=== PATIENT | female | born 1960 | race Caucasian/White ===

== ENCOUNTER 2019-06-21 17:56 | Observation (INO) | payer MEDICARE, OTHER ==
[2019-06-21 19:16] LABS: #Basophils 0.1 thou/uL (0.0-0.2); #Eosinphils 0.1 thou/uL (0.0-0.7); #Lymphocytes 3.2 thou/uL (1.20-3.40); #Monocytes 0.9 thou/uL (0.11-0.59); #Neutrophils 5.7 thou/uL (1.40-6.50); %Eosinophils 0.7 % (0.0-10.0); %Lymphocytes 32.4 % (21.0-51.0); %Monocytes 8.8 % (0.0-10.0); %Neutrophils 57.1 % (42.0-75.0); Hemoglobin 14.2 g/dL (12.0-16.0); Mean Corpuscular HGB CONC 34.1 g/dL (32.0-36.0); Mean Corpuscular Hemoglobin 30.9 pg (27.0-31.0); Mean Corpuscular Volume 90.5 fL (78.0-98.0); Mean Platelet Volume 9.6 fL (7.4-10.4); Platelet Count 211 thou/uL (130-400); RBC Distribution Width 11.5 % (11.5-14.5); Red Blood Cell (RBC) Count 4.61 mill/uL (4.20-5.40); White Blood Cell (WBC) Count 9.9 thou/uL (4.8-10.8)
[2019-06-21 19:42] LABS: ALT (SGPT) 10 U/L (8-55); AST (SGOT) 14 U/L (5-34); Albumin 4.5 g/dL (3.5-5.0); Alkaline Phosphatase 90 U/L (40-110); Anion Gap 14 mmol/L (10-20); BUN (Urea Nitrogen) 12 mg/dL (9.8-20.1); Bilirubin, Total 0.3 mg/dL (0.2-1.2); Calc. Creatinine Clearance 0 mL/min (70-130); Calcium 10.2 mg/dL (7.8-10.44); Carbon Dioxide 26 mmol/L (22-29); Chloride 95 mmol/L (98-107); Estimated GFR-MDRD 48; Globulin 4.1 g/dL (2.4-3.5); Glucose 326 mg/dL (70-105); Potassium 4.1 mmol/L (3.5-5.1); Protein, Total 8.6 g/dL (6.0-8.3); Sodium 131 mmol/L (136-145)
[2019-06-21] MEDS ORDERED: Ondansetron PF 4 MG/2 ML Vial ONE (20:06)
[2019-06-21] MEDS ORDERED: HYDROmorphone 0.5 MG/0.5 ML SYRINGE ONE (20:07)
[2019-06-21] MEDS ORDERED: Clindamycin/D5W 600 mg/50 ml Premix Bag ONE (21:36)
--- NOTE | 2019-06-21 22:46 | PDOC.FPRHP ---
- History of Present Illness Chief Complaint: Right LE Pain / Erythema History of Present Illness: Patient is a 59 y/o female who presents to the ED with right LE pain, erythema and swelling that she states has been occuring since 06/08. Patient first noticed the pain and swelling following a car ride to [place]. She presented to an urgent care clinic on 06/14/19 and was diagnosed with Diabetic Neuropathy and DC'd with Gabapentin and Tylenol 3. Patient's pain continued to increase, so she presented to the [facility] ED where she was diagnosed with RLE cellulitis and Diabetic Neuropathy - she was given IV antibiotics x1 and DC' d with PO Cefdinir and Clindamycin. On 06/21/19 she stated that her pain was unbearable, and she was told by her PCP to present to [facility] for IV antibiotics. She states that she registered a temperature of 101 in the office of her PCP and stated that she felt like she was walking on "pins and needles". She is a notably poor historian, but denies any recent trauma to the area or frequent skin or MRSA infections, as well as visual/auditory changes, chest pain , SOB, V/D, ABD ain, dysuria, hematuria or bloody stools. She does not perform regular Diabetic Foot Exams. ED Course: While in the ED, patient was administered Clindamycin 600 mg IV, Dilaudid 0.5 mg IV and Zofran 4 mg IV. - Allergies/Adverse Reactions Allergies Allergy/AdvReac Type Severity Reaction Status Date / Time morphine Allergy respiratory Verified 06/22/19 00:52 depression Sulfa (Sulfonamide Allergy Swollen Verified 06/22/19 00:52 Antibiotics) Lips - Home Medications Medication Instructions Recorded Confirmed Type RX: Amlodipine Besylate 10 mg PO DAILY 06/23/16 06/22/19 History [amLODIPine Besylate] RX: Aspirin Chewable [Aspirin 81 mg PO DAILY 06/23/16 06/22/19 History Chewable Tablet] RX: Buspirone HCl [busPIRone HCl] 30 mg PO BID 06/23/16 06/23/16 History RX: Clopidogrel Bisulfate 75 mg PO QAM 06/23/16 06/22/19 History [Clopidogrel] RX: Gabapentin 200 mg PO BID 06/23/16 06/23/16 History RX: Insulin Glargine,Hum.Rec.Anlog 25 unit SQ BID 06/23/16 06/22/19 History [Lantus Solostar] RX: Metoprolol Tartrate 25 mg PO BID 06/23/16 06/22/19 History RX: Multivitamin [Multivitamins] 1 cap PO DAILY 06/23/16 06/22/19 History RX: Rosuvastatin Calcium 40 mg PO HS 06/23/16 06/22/19 History RX: traZODone HCl [Trazodone HCl] 150 mg PO HS 06/23/16 06/22/19 History Cefdinir 300 mg PO BID 06/22/19 06/22/19 History Cilostazol 100 mg PO BID 06/22/19 06/22/19 History RX: Acetaminophen W/ Codeine 1 tab PO PRN PRN 06/22/19 06/22/19 History [Acetaminophen/Codeine #3] RX: Clindamycin [Cleocin] 150 mg PO QID 06/22/19 06/22/19 History RX: HumaLOG [HumaLOG Vial] SQ TID 06/22/19 History RX: Isosorbide Mononitrate [Imdur 60 mg PO DAILY 06/22/19 History ER] RX: Valsartan [Diovan] 80 mg PO BID 06/22/19 06/22/19 History - History PMHx: DM2, HTN, HLD, Unknown Heart Conditions (Palpitations) PSHx: Multiple Stents placed in both LEs, Remote , Remote Hysterectomy FHx: Mother (PAD, Breast Cancer), Father (OAT Cell Cancer), Brother (DM2) Social: Tobacco 1.5 PPD x30, Denies EtOH and Drugs Code: Full ( is MPOA and understands termination clerk wishes) - Review of Systems General: reports: fever/chills, fatigue Eyes: denies: eye pain, vision changes ENT: denies: nasal congestion, rhinorrhea Respiratory: reports: cough. denies: congestion, shortness of breath Cardiovascular: reports: edema. denies: chest pain, palpitation Gastrointestinal: reports: nausea. denies: vomiting, diarrhea, constipation, abdominal pain, GI bleeding Genitourinary: denies: dysuria, discharge Skin: reports: rashes. denies: lesions Musculoskeletal: reports: pain, swelling Neurological: reports: numbness. denies: syncope, weakness - Vital signs BP: [165/68] HR: [64] RR: [] Tmax: [98.3] Pox: [98]% on [Room] Wt: [71 kg] - Physical Exam Constitutional: NAD, awake, alert and oriented, well developed HEENT: normocephalic and atraumatic, PERRLA, conjunctiva clear, no scleral icterus, grossly normal vision, grossly normal hearing, normal nasal mucosa, MMM , oropharynx clear, good dention Neck: supple, FROM, trachea midline, no LAD Chest: no-tender to palpation, no lesions Heart: RRR, normal S1/S2, no murmurs/rubs/gallops, pulses present, no edema Lungs: CTAB, no respiratory distress, no rales/rhonchi, no wheezing, no retractions Abdomen: soft, non-tender, bowel sounds present Musculoskeletal: normal structure, ROM grossly normal Neurological: no focal deficit Skin: other (Minimal swelling and poorly demarcated, extremely mild erythema on right lower extremity. FROM bilaterally. Delayed responses of pain following palpation. Appropriate warmth but difficult to palpate Posterior Tibial and Dorsalis Pedis Arteries.) Heme/Lymphatic: no unusual bruising or bleeding, no purpura Psychiatric: normal mood and affect, intact recent and remote memory FMR H&P: Results - Labs Result Diagrams: 06/21/19 18:55 06/21/19 18:55 Lab results: WBC 9.9 thou/uL (4.8-10.8) 06/21/19 18:55 Hgb 14.2 g/dL (12.0-16.0) 06/21/19 18:55 Hct 41.8 % (36.0-47.0) 06/21/19 18:55 MCV 90.5 fL (78.0-98.0) 06/21/19 18:55 Plt Count 211 thou/uL (130-400) 06/21/19 18:55 Neutrophils % 57.1 % (42.0-75.0) 06/21/19 18:55 Sodium 131 mmol/L (136-145) L 06/21/19 18:55 Potassium 4.1 mmol/L (3.5-5.1) 06/21/19 18:55 Chloride 95 mmol/L (98-107) L 06/21/19 18:55 Carbon Dioxide 26 mmol/L (22-29) 06/21/19 18:55 BUN 12 mg/dL (9.8-20.1) 06/21/19 18:55 Creatinine 1.15 mg/dL (0.6-1.1) H 06/21/19 18:55 Glucose 326 mg/dL (70-105) H 06/21/19 18:55 Lactic Acid 1.0 mmol/L (0.5-2.2) 06/21/19 18:55 Calcium 10.2 mg/dL (7.8-10.44) 06/21/19 18:55 Total Bilirubin 0.3 mg/dL (0.2-1.2) 06/21/19 18:55 AST 14 U/L (5-34) 06/21/19 18:55 ALT 10 U/L (8-55) 06/21/19 18:55 Alkaline Phosphatase 90 U/L (40-110) 06/21/19 18:55 Serum Total Protein 8.6 g/dL (6.0-8.3) H 06/21/19 18:55 Albumin 4.5 g/dL (3.5-5.0) 06/21/19 18:55 FMR H&P: A/P - Problem List (1) Cellulitis Current Visit: Yes Status: Acute Code(s): L03.90 - CELLULITIS, UNSPECIFIED (2) DM (diabetes mellitus), type 2, uncontrolled Current Visit: No Status: Chronic Code(s): E11.65 - TYPE 2 DIABETES MELLITUS WITH HYPERGLYCEMIA (3) PAD (peripheral artery disease) Current Visit: No Status: Chronic Code(s): I73.9 - PERIPHERAL VASCULAR DISEASE, UNSPECIFIED - Plan Patient is a 59 y/o female who presents to the ED for evaluation of RLE pain. 1. Cellulitis of RLE -No obvious lesions or ulcerations - no abscess palpated during physical exam -X-Ray (06/18/19): NAF - will not repeat at this time -No signs of sepsis, rapidly spreading infection or neurovascular compromise -Poorly demarcated barriers of erythema from outside provider - erythema appears to extend only to mid forefoot - difficult to assess progression / regression -Patient had previously received a single dose of unknown IV antibiotic and was DC'd home with PO Cefdinir and Clindamycin - regimen currently incomplete -s/p Clindamycin 600 mg IV in ED - will continue empiric therapy Q24H -s/p Dilaudid 0.5 mg IV for pain control - will switch to Tylenol #3 and home medication regimen of Gabapentin - encourage elevation and warm compresses if needed -Plan for eventual transition to PO antibiotics 2. PAD -Patient has extensive history of tobacco abuse and admits to multiple stent placements -No evidence of cyanosis or limb ischemia -Continue home medication regimen 3. DM2 -B on 06/21/18 -Continue home medication regimen -Moderate SSI -Moderate PM SSI 4. Tobacco Abuse -Nicotine 21 mg Patch -Continue to encourage tobacco abuse cessation Code: Full Diet: HH/CC Activity: Ad Cydney VTE PPx: Lovenox & SCDs Dispo: Patient is currently stable on the Medical Floor for RLE Cellulitis FMR H&P: Upper Level - Pertinent history 59 y/o F PMHx CAD s/p 3 stents, PAD s/p stents, DM2 - uncontrolled, HTN, HLD, tobacco abuse, anxiety, depression presents to the ED due to failed outpt treatment of cellulitis. She reports for the past week she has had increased pain, swelling, redness in her R foot. She reports constant pins and needles pain especially on the bottom of the foot. She reports the redness and swelling was more on the top of the foot and it has been getting progressively worse. She went to [facility] ED and was given clinda and cefdinir that she has been taking, but reports no improvement with this. She reports the gabapentin has helped some with the neuropathy. She reports a fever to 100.9 at her PCP's office. - Pertinent findings Vitals: BP: 165/68, Pulse: 84, Resp: 18, Temp: 98.3 (Oral), O2 sat: 98 on (Room Air) PE: Gen - alert, oriented, NAD CV - RRR, no murmurs Lungs - CTAB, no wheezes Ext - mild diffuse erythema and swelling of R dorsal foot, pain to palpation. Normal cap refill and color otherwise, FROM. - Plan Date/Time: 06/21/19 4809 I, Magy Powers MD, PGY-3, have evaluated this patient and agree with findings/ plan as outlined by business management intern resident. Pertinent changes/additions are listed here. RLE cellulitis, failed outpatient treatment Pt s/p clinda and cefdinir. Received IV clinda in ED and reports improvement in erythema since that time. -Will continue IV clinda and monitor for improvement -Tylenol #3 prn pain, pt s/p dilaudid in ED, but will try to avoid IV pain meds if possible Peripheral Neuropathy -Gabapentin Hyponatremia Mild to 131 -Monitor CAD s/p 3 stents -Continue plavix, aspirin, valsartan, metoprolol, rosuvastatin, isosorbide mononitrate -HH diet PAD s/p stents -Continue cilostazol DM2 - uncontrolled -SSI -Accuchecks -CC/HH diet HTN BP elevated at this time -Continue amlodipine, metoprolol, valsartan HLD -Continue rosuvastatin tobacco abuse -Group Fitness Instructor on cessation anxiety -Continue buspirone depression -Continue trazodone Dispo: Obs on medical LOS: Likely less than 2 days
[2019-06-21] MEDS ORDERED: Dextrose 50% Abboject 50 ML SYRINGE SLOW IVP PRN (23:48)
[2019-06-21] MEDS ORDERED: Dextrose 5% in Water 1,000 ML IV PRN (23:48)
[2019-06-21] MEDS ORDERED: Acetaminophen 325 MG TAB PO PRN (23:57)
[2019-06-21] MEDS ORDERED: Ondansetron ODT 4 MG TAB PO PRN (23:57)
[2019-06-22 00:17] VITALS: BMI 25.3
[2019-06-22] MEDS ORDERED: HumaLOG 300 UNITS/3 ML VIAL SC PRN (00:47)
[2019-06-22] MEDS: Nicotine 21 MG PATCH TD SCH ×2 (01:00→20:46)
[2019-06-22] MEDS: Acetaminophen/Codeine 30-300mg Tablet PO PRN ×4 (01:01→19:16)
[2019-06-22] MEDS: HumaLOG 300 UNITS/3 ML VIAL SC PRN ×2 (05:27→17:44)
[2019-06-22] MEDS: Clindamycin/D5W 600 MG in Premix Bag 1 BAG IVPB SCH ×3 (05:27→20:46)
[2019-06-22] MEDS: Insulin Glargine 20 UNITS in Pre-Filled Syringe 1 EACH SC SCH (08:32)
[2019-06-22] MEDS: Clopidogrel Bisulfate 75 MG TAB PO SCH (08:33)
[2019-06-22] MEDS: Metoprolol Tartrate 50 MG TAB PO SCH ×2 (08:33→20:46)
[2019-06-22] MEDS: Rosuvastatin 20 MG TAB PO SCH (08:33)
[2019-06-22] MEDS: Aspirin 81 mg Enteric Coated Tablet PO SCH (08:33)
[2019-06-22] MEDS: busPIRone HCl 10 MG TAB PO SCH (08:33)
[2019-06-22] MEDS: Cilostazol 100 MG TAB PO SCH ×2 (08:33→20:46)
[2019-06-22] MEDS: Valsartan 80 MG TAB PO SCH ×2 (08:34→20:46)
[2019-06-22] MEDS: Cyanocobalamin (Vitamin B-12) 1,000 MCG TAB PO SCH (08:34)
[2019-06-22] MEDS: Amlodipine 5 MG TAB PO SCH (08:34)
[2019-06-22] MEDS: Enoxaparin Sodium 40 MG/0.4 ML SYRINGE SC SCH (08:35)
[2019-06-22] MEDS ORDERED: Famotidine 20 MG TAB PO SCH (09:00)
[2019-06-22] MEDS ORDERED: Gabapentin 300 MG CAP PO SCH (09:00)
[2019-06-22] MEDS: Gabapentin 300 MG CAP PO SCH ×3 (10:41→20:46)
--- NOTE | 2019-06-22 11:45 | PRG ---
DATE OF SERVICE: 06/22/2019 I have examined the patient. I have discussed the case with Dr. Valerie Trinidad and agree with her assessment and plan. Ms. Singh is a pleasant 59-year-old lady, who was admitted with a possible cellulitis of her right lower extremity. She has however had several rounds of antibiotics at outlying areas without improvement. We need to consider that perhaps this is not cellulitis and we will do some further testing to ensure that this is not DVT, although clinically it does not appear to be. In the meantime, we will continue with antibiotics and pain control. Job ID: [id number]
--- NOTE | 2019-06-22 14:08 | ULT ---
BILATERAL LOWER EXTREMITY VENOUS DOPPLER ULTRASOUND: HISTORY: Bilateral lower extremity edema and pain. TECHNIQUE: Cast scale, color flow, and spectral Doppler imaging of the deep venous systems of the lower extremit ies was performed bilaterally. FINDINGS: There is good flow, compression, and augmentation within the common femoral, femoral, deep femoral, p opliteal, posterior tibial, and greater saphenous veins on either side. IMPRESSION: No evidence of deep vein thrombosis in either lower extremity. POS: TPC
[2019-06-22] MEDS ORDERED: traZODone HCl 150 MG TAB PO SCH (21:00)
--- NOTE | 2019-06-23 06:02 | PDOC.FM ---
- Subjective Subjective: Pt states neuropathic pain is much improved from increasing gabapentin to TID dosing. Denies further redness or swelling to R foot. No acute overnight events. - Objective MAR Reviewed: Yes Vital Signs & Weight: Vital Signs (12 hours) Temp Pulse Resp BP Pulse Ox 06/23/19 03:44 98.1 F 72 20 122/72 96 06/23/19 00:44 98.7 F 81 20 159/60 H 95 06/22/19 20:00 99.6 F 86 20 127/75 94 L Weight Weight 71.305 kg I&O: 06/21/19 06/22/19 06/23/19 06:59 06:59 06:59 Intake Total 520 Balance 520 Result Diagrams: 06/21/19 18:55 06/23/19 06:39 Phys Exam - Physical Examination Constitutional: NAD HEENT: moist MMs, sclera anicteric Neck: no nodes, supple, full ROM Respiratory: no wheezing, no rales, no rhonchi, clear to auscultation bilateral Cardiovascular: RRR, no significant murmur, no rub Gastrointestinal: soft, non-tender Musculoskeletal: no edema, pulses present decreased TTP of R foot from previous exam. Neurological: non-focal, moves all 4 limbs Psychiatric: normal affect, A&O x 3 Skin: no rash, cap refill <2 seconds Deviation from normal: no further erythema on R foot. Dx/Plan (1) Peripheral neuropathy Code(s): G62.9 - POLYNEUROPATHY, UNSPECIFIED Status: Acute (2) HTN (hypertension) Code(s): I10 - ESSENTIAL (PRIMARY) HYPERTENSION Status: Acute (3) HLD (hyperlipidemia) Code(s): E78.5 - HYPERLIPIDEMIA, UNSPECIFIED Status: Acute (4) Cellulitis Code(s): L03.90 - CELLULITIS, UNSPECIFIED Status: Acute (5) CAD in [place] artery Code(s): I25.10 - ATHSCL HEART DISEASE OF [place] CORONARY ARTERY W/O ANG PCTRS Status: Acute (6) DM (diabetes mellitus), type 2, uncontrolled Code(s): E11.65 - TYPE 2 DIABETES MELLITUS WITH HYPERGLYCEMIA Status: Chronic (7) PAD (peripheral artery disease) Code(s): I73.9 - PERIPHERAL VASCULAR DISEASE, UNSPECIFIED Status: Chronic - Plan Plan: RLE cellulitis, failed outpatient treatment. Improved. Pt s/p clinda and cefdinir. Received IV clinda in ED and reports improvement in erythema since that time. DDx: dvt, cellulitis, neuropathic pain. -Will d/c clinda today -Tylenol #3 prn pain, pt s/p dilaudid in ED, but will try to avoid IV pain meds if possible - CRP <0.5, ESR 30. foot x-ray no acute findings on 06/18. Osteomyelitis not suspected. - Doppler BLE's negative for DVT on 06/22. ruled out. - Most likely etiology of pain is neuropathic. Will adjust gabapentin. Peripheral Neuropathy, possible source of pt's severe pain. -Gabapentin increased to TID 300 mg dosing. - May titrate up amount per dosing. Hyponatremia Mild to 131 -Monitor, BMP pending for this AM. CAD s/p 3 stents -Continue plavix, aspirin, valsartan, metoprolol, rosuvastatin, isosorbide mononitrate -HH diet PAD s/p stents -Continue cilostazol DM2 - uncontrolled -SSI -Accuchecks -CC/HH diet HTN BP elevated at this time -Continue amlodipine, metoprolol, valsartan HLD -Continue rosuvastatin tobacco abuse -Records Management Coordinator on cessation anxiety -Continue buspirone depression -Continue trazodone Dispo: Obs on medical LOS: Likely less than 2 days Addendum - Attending - Attending Attestation Date/Time: 06/23/19 [id number] I personally evaluated the patient and discussed the management with Dr. Trinidad I agree with the History, Examination, Assessment and Plan documented above with any addition or exceptions noted below. Patient endorsing improved pain control with gabapentin pain appears to be neuropathic in setting history of PVD s/p stenting. Would empirically continue po antibiotic x total 10 days.
[2019-06-23] MEDS: HumaLOG 300 UNITS/3 ML VIAL SC PRN (06:24)
[2019-06-23] MEDS: Clindamycin/D5W 600 MG in Premix Bag 1 BAG IVPB SCH (06:24)
[2019-06-23 07:18] LABS: Anion Gap 12 mmol/L (10-20); BUN (Urea Nitrogen) 20 mg/dL (9.8-20.1); Calc. Creatinine Clearance 68 mL/min (70-130); Calcium 9.5 mg/dL (7.8-10.44); Carbon Dioxide 27 mmol/L (22-29); Chloride 99 mmol/L (98-107); Estimated GFR-MDRD 57; Glucose 327 mg/dL (70-105); Potassium 4.2 mmol/L (3.5-5.1); Sodium 134 mmol/L (136-145)
[2019-06-23] MEDS: Valsartan 80 MG TAB PO SCH (08:14)
[2019-06-23] MEDS: Aspirin 81 mg Enteric Coated Tablet PO SCH (08:15)
[2019-06-23] MEDS: Enoxaparin Sodium 40 MG/0.4 ML SYRINGE SC SCH (08:15)
[2019-06-23] MEDS: busPIRone HCl 10 MG TAB PO SCH (08:15)
[2019-06-23] MEDS: Rosuvastatin 20 MG TAB PO SCH (08:16)
[2019-06-23] MEDS: Amlodipine 5 MG TAB PO SCH (08:16)
[2019-06-23] MEDS: Cyanocobalamin (Vitamin B-12) 1,000 MCG TAB PO SCH (08:16)
[2019-06-23] MEDS: Metoprolol Tartrate 50 MG TAB PO SCH (08:16)
[2019-06-23] MEDS: Clopidogrel Bisulfate 75 MG TAB PO SCH (08:16)
[2019-06-23] MEDS: Cilostazol 100 MG TAB PO SCH (08:17)
[2019-06-23] MEDS ORDERED: Gabapentin 300 MG CAP PO SCH (09:00)
[2019-06-23] MEDS: Acetaminophen/Codeine 30-300mg Tablet PO PRN (10:24)
[2019-06-23] MEDS: Insulin Glargine 20 UNITS in Pre-Filled Syringe 1 EACH SC SCH (10:26)
[2019-06-23 11:42] VITALS: BP 133/65; TEMP 98.2
--- NOTE | 2019-06-24 00:23 | DIS ---
DATE OF ADMISSION: 06/21/2019 DATE OF DISCHARGE: 06/23/2019 ADMITTING ATTENDING: Dr. Zachariah Maher. DISCHARGE ATTENDING: Dr. Keith Elliott. CONSULTATIONS: None. PROCEDURES: None. PRIMARY DIAGNOSES: 1. Right lower extremity cellulitis, failed outpatient treatment. 2. Peripheral neuropathy. 3. Hyponatremia. 4. Coronary artery disease with status post 3 stents. 5. Peripheral arterial disease, status post stents. 6. Diabetes mellitus type 2. 7. Hypertension. 8. Hyperlipidemia. 9. Tobacco abuse. 10. Anxiety. 11. Depression. DISCHARGE MEDICATIONS: Acetaminophen with codeine 1 tab p.o. p.r.n.; amlodipine 10 mg p.o. daily; aspirin 81 mg p.o. daily; buspirone 30 mg p.o. b.i.d.; cilostazol 100 mg p.o. b.i.d.; clindamycin 150 mg capsule q.i.d. for 4 more days 16 capsules; Plavix 75 mg p.o. daily; gabapentin 600 mg p.o. t.i.d.; Lantus 25 units subcu b.i.d.; Imdur 60 mg p.o. daily; metoprolol 25 mg p.o. b.i.d.; multivitamin one capsule p.o. daily; nicotine patch 21 mg transdermal patch q.24 hours, gave 7 patches; rosuvastatin 40 mg p.o. at bedtime; valsartan 80 mg p.o. b.i.d.; trazodone 150 mg p.o. at bedtime. HISTORY OF PRESENT ILLNESS/HOSPITAL COURSE: Ms. Singh is a 59-year-old female with past medical history of diabetes, peripheral neuropathy, and peripheral arterial disease, comes in with pain to the right foot that radiates up the right calf. It is fairly electric and shooting like in nature. She had been diagnosed previously on 3 outside ER visits with cellulitis and given antibiotics, clindamycin, to treat this presumed cellulitis. She came in to our emergency department and was admitted for failed outpatient treatment of cellulitis. Her pain did not improve after we started her on IV clindamycin and there was never a very sharp demarcation or erythema around the foot to show a very good evidence for cellulitis; however, she was extremely tender in that foot to touch. I upped her gabapentin to 300 mg p.o. t.i.d., this helped her significantly with her pain; of note, the patient was then upped to 600 mg p.o. t.i.d. and the patient's pain was better that it was one time. DVT to lower extremities is ruled out by venous Doppler of bilateral lower extremities as that was also a presumed diagnosis, which was ruled out. Her sodium was 131 on admission and 134 on discharge. CRP was less than 0.05. ESR was 30. The patient's pain was well managed. We also discharged her on 4 more days of clindamycin to give her a total of 10 days treatment that she started on 06/18/2019 for the cellulitis. DISPOSITION: Stable upon discharge. DISCHARGE INSTRUCTIONS: Location: To home. Diet: Heart healthy, consistent carb. ACTIVITY: As tolerated. Follow up with primary care in 1 week to reassess the cellulitis for healing and to reassess her pain management with the gabapentin. Job ID: [id number] MTDD
== END 2019-06-23 14:00 | disposition home or self-care (01) ==
LOC: ERS 17:56 → T4-A 23:16
PROVIDERS: ADMIT Family Medicine; ATTEND Family Medicine
DX: L03.115 Cellulitis of right lower limb (principal); E11.42 Type 2 diabetes mellitus with diabetic polyneuropathy; E87.1 Hypo-osmolality and hyponatremia; I25.10 Atherosclerotic heart disease of native coronary artery without angina pectoris; I73.9 Peripheral vascular disease, unspecified; E11.65 Type 2 diabetes mellitus with hyperglycemia; I10 Essential (primary) hypertension; E78.5 Hyperlipidemia, unspecified; F17.210 Nicotine dependence, cigarettes, uncomplicated; F41.9 Anxiety disorder, unspecified; F32.9 Major depressive disorder, single episode, unspecified; Z79.02 Long term (current) use of antithrombotics/antiplatelets; Z79.4 Long term (current) use of insulin; Z79.82 Long term (current) use of aspirin; Z79.899 Other long term (current) drug therapy; Z88.2 Allergy status to sulfonamides; Z88.5 Allergy status to narcotic agent; Z95.5 Presence of coronary angioplasty implant and graft
CPT/HCPCS: 80048; 80053; 82962 ×3; 83605; 85025; 85652; 86140; 93970; 96365; 96366; 96372 ×2; 96375; 96376 ×2; 99284; G0378 ×4; 36415; 36416; J1170; J1650; J1815; J2405; J3490

== ENCOUNTER 2020-09-10 10:04 | Outpatient (CLI) | payer MEDICARE, OTHER | END 2020-09-10 10:05 | disposition home or self-care (01) | LOC: BICMAMMO 10:04 | PROVIDERS: ATTEND Nurse Practitioner Family | DX: Z12.31 Encounter for screening mammogram for malignant neoplasm of breast (principal); Z13.820 Encounter for screening for osteoporosis; M85.89 Other specified disorders of bone density and structure, multiple sites; Z80.3 Family history of malignant neoplasm of breast; Z85.42 Personal history of malignant neoplasm of other parts of uterus | CPT/HCPCS: 77063; 77067; 77080 ==

== ENCOUNTER 2023-04-22 19:08 | Inpatient (IN) | payer MEDICARE, OTHER ==
[~2023-04-22 19:08] MED LIST: Iopamidol-370 76% 500 ML MDV (1 ML CHARGE) ONE
[2023-04-22 20:30] LABS: #Eosinphils 0.1 thou/uL (0.0-0.7); #Monocytes 1.1 thou/uL (0.11-0.59); #Neutrophils 6.9 thou/uL (1.40-6.50); %Basophils 0.4 % (0.0-1.0); %Eosinophils 0.6 % (0.0-10.0); %Lymphocytes 21.1 % (21.0-51.0); %Monocytes 10.3 % (0.0-10.0); %Neutrophils 67.3 % (42.0-75.0); Hematocrit 39.9 % (36.0-47.0); Hemoglobin 13.4 g/dL (12.0-16.0); Mean Corpuscular HGB CONC 33.6 g/dL (32.0-36.0); Mean Corpuscular Hemoglobin 30.3 pg (27.0-31.0); Mean Corpuscular Volume 90.3 fl (78.0-98.0); Platelet Count 177 10x3/uL (130-400); RBC Distribution Width 12.8 % (11.5-14.5); Red Blood Cell (RBC) Count 4.42 mill/uL (4.20-5.40); White Blood Cell (WBC) Count 10.3 10x3/uL (4.8-10.8)
[2023-04-22 20:46] LABS: INR-International Normal Ratio 1.1; Prothrombin Time 14.7 sec (12.0-14.7)
[2023-04-22 20:47] LABS: PTT 27.5 sec (22.9-36.1)
[2023-04-22] MEDS ORDERED: fentaNYL 50 mcg/mL 1 mL Vial ONE (20:47)
[2023-04-22 20:59] LABS: ALT (SGPT) 7 U/L (8-55); AST (SGOT) 11 U/L (5-34); Albumin 3.9 g/dL (3.4-4.8); Alkaline Phosphatase 66 U/L (40-110); Anion Gap 15 mmol/L (10-20); BUN (Urea Nitrogen) 18 mg/dL (9.8-20.1); Bilirubin, Total 0.3 mg/dL (0.2-1.2); Calc. Creatinine Clearance 0 mL/min (70-130); Calcium 9.4 mg/dL (7.8-10.44); Carbon Dioxide 20 mmol/L (23-31); Chloride 103 mmol/L (98-107); Estimated GFR 58; Globulin 3.4 g/dL (2.4-3.5); Glucose 234 mg/dL (80-115); Potassium 3.4 mmol/L (3.5-5.1); Protein, Total 7.3 g/dL (5.8-8.1); Sodium 135 mmol/L (136-145)
[2023-04-22] MEDS ORDERED: Heparin 25,000 units/D5W 500 ML ONE (22:32)
[2023-04-22] MEDS ORDERED: Senokot S 8.6-50 MG TAB PO PRN (22:48)
[2023-04-22] MEDS ORDERED: Potassium Chloride 20 MEQ TAB PO SCH (23:00)
[2023-04-22] MEDS ORDERED: Sodium Chloride 0.9% 1,000 ML IV SCH (23:00)
[2023-04-22] MEDS ORDERED: Ondansetron ODT 4 MG TAB SL PRN (23:15)
[2023-04-22] MEDS ORDERED: Heparin 25,000 units/D5W 500 ML IV SCH (23:15)
[2023-04-22] MEDS ORDERED: Heparin 10,000 UNITS/ 10 ML VIAL SLOW IVP SCH (23:15)
[2023-04-22] MEDS ORDERED: Ondansetron PF 4 MG/2 ML Vial IVP PRN (23:15)
[2023-04-22] MEDS ORDERED: Dextrose 50% Abboject 50 ML SYRINGE SLOW IVP PRN (23:19)
[2023-04-22] MEDS ORDERED: Glucagon 1 MG/ML KIT IM PRN (23:19)
[2023-04-22] MEDS ORDERED: Dextrose 5% in Water 1,000 ML IV PRN (23:19)
[2023-04-23 01:00] VITALS: BMI 22.6
[2023-04-23 01:12] LABS: Troponin I 0.064 ng/mL (< 0.028)
[2023-04-23 01:22] LABS: Magnesium 1.4 mg/dL (1.6-2.6); Phosphorus 2.2 mg/dL (2.3-4.7)
[2023-04-23] MEDS ORDERED: Ketorolac Tromethamine 30 MG/ML VIAL IVP SCH ×2 (01:45)
[2023-04-23] MEDS ORDERED: Magnesium 2 GM/50 ML(in water) 2 GM in Premix 1 BAG IVPB SCH (01:45)
[2023-04-23] MEDS ORDERED: Pantoprazole 40 MG VIAL IVP SCH (01:45)
[2023-04-23] MEDS ORDERED: Cefepime 2 GM in Sodium Chloride 0.9% 100 ML IVPB SCH (02:00)
[2023-04-23] MEDS ORDERED: Vancomycin (BATCH) 1.25 GM in Premix 1 BAG IVPB SCH (03:00)
[2023-04-23] MEDS: traMADol HCl 50 MG TAB PO PRN ×4 (03:25→21:36)
[2023-04-23 05:44] LABS: #Basophils 0.1 thou/uL (0.0-0.2); #Eosinphils 0.1 thou/uL (0.0-0.7); #Monocytes 1.7 thou/uL (0.11-0.59); #Neutrophils 5.4 thou/uL (1.40-6.50); %Basophils 0.5 % (0.0-1.0); %Eosinophils 0.6 % (0.0-10.0); %Monocytes 16.4 % (0.0-10.0); %Neutrophils 53.1 % (42.0-75.0); Hematocrit 37.2 % (36.0-47.0); Hemoglobin 12.2 g/dL (12.0-16.0); Mean Corpuscular HGB CONC 32.8 g/dL (32.0-36.0); Mean Corpuscular Hemoglobin 30.6 pg (27.0-31.0); Platelet Count 147 10x3/uL (130-400); RBC Distribution Width 12.9 % (11.5-14.5); Red Blood Cell (RBC) Count 3.99 mill/uL (4.20-5.40); White Blood Cell (WBC) Count 10.2 10x3/uL (4.8-10.8)
[2023-04-23 05:47] LABS: Mean Corpuscular Volume 93.2 fl (78.0-98.0)
[2023-04-23 06:01] LABS: ALT (SGPT) 7 U/L (8-55); AST (SGOT) 11 U/L (5-34); Albumin 3.4 g/dL (3.4-4.8); Alkaline Phosphatase 56 U/L (40-110); Anion Gap 15 mmol/L (10-20); BUN (Urea Nitrogen) 15 mg/dL (9.8-20.1); Bilirubin, Total 0.3 mg/dL (0.2-1.2); Calc. Creatinine Clearance 65 mL/min (70-130); Calcium 8.7 mg/dL (7.8-10.44); Carbon Dioxide 19 mmol/L (23-31); Chloride 105 mmol/L (98-107); Estimated GFR 73; Globulin 3.1 g/dL (2.4-3.5); Glucose 188 mg/dL (80-115); Potassium 3.4 mmol/L (3.5-5.1); Protein, Total 6.5 g/dL (5.8-8.1); Sodium 136 mmol/L (136-145)
[2023-04-23 06:03] LABS: PTT 141.6 sec (22.9-36.1)
[2023-04-23 06:06] LABS: Troponin I 0.068 ng/mL (< 0.028)
[2023-04-23] MEDS: Ipratropium/Albuterol 3 ML NEB NEB SCH ×7 (07:12→22:46)
[2023-04-23] MEDS ORDERED: Potassium Phosphate 30 MMOL in Sodium Chloride 0.9% 500 ML IVPB SCH (09:00)
[2023-04-23] MEDS ORDERED: Vancomycin 1 GM in Premix 1 BAG IVPB SCH (09:00)
[2023-04-23] MEDS ORDERED: Aspirin 81 mg Enteric Coated Tablet PO SCH (09:00)
[2023-04-23] MEDS ORDERED: Famotidine 20 MG TAB PO SCH (09:00)
[2023-04-23] MEDS ORDERED: Ranolazine 500 MG ER.TAB PO SCH (09:00)
[2023-04-23] MEDS: Sodium Chloride 0.9% 1,000 ML IV SCH ×2 (09:10→23:19)
[2023-04-23] MEDS: PHOS-NAK 1 PKT PACK PO SCH ×2 (09:13→21:35)
[2023-04-23 09:18] LABS: Troponin I 0.073 ng/mL (< 0.028)
[2023-04-23] MEDS: Acetaminophen 325 MG TAB PO PRN (13:24)
[2023-04-23] MEDS ORDERED: Metoprolol Tartrate 100 MG TAB PO SCH (14:30)
[2023-04-23] MEDS ORDERED: hydrALAZINE 20 MG/ML VIAL SLOW IVP PRN (14:37)
[2023-04-23] MEDS ORDERED: Lisinopril 20 MG TAB PO SCH (14:37)
[2023-04-23 15:14] LABS: Bilirubin Negative (Negative); Blood, Urine Small (Negative); Glucose, Urine (Dipstick) >=1000 mg/dL (Negative); Ketone, Urine Negative (Negative); Leukocyte Moderate (Negative); Nitrite Negative (Negative); Protein, Urine (Dipstick) 100 mg/dL (Neg-Trace); Specific Gravity, Urine 1.025 (1.005-1.030); Urobilinogen 0.2 mg/dL (Less than 2); pH, Urine 5.5 (5.0-9.0)
[2023-04-23 15:21] LABS: Clarity Hazy (Clear)
[2023-04-23] MEDS: Gabapentin 100 MG CAP PO SCH ×2 (15:21→21:35)
[2023-04-23 15:27] LABS: Bacteria/HPF 1+ HPF (None Seen); Squamous Epithelial Greater than 50 HPF (0-3); Transitional Epithelial 0-3 HPF (None Seen)
[2023-04-23 15:34] LABS: WBC/HPF 0-3 HPF (0-3)
[2023-04-23 17:19] LABS: Anion Gap 12 mmol/L (10-20); BUN (Urea Nitrogen) 13 mg/dL (9.8-20.1); Calc. Creatinine Clearance 63 mL/min (70-130); Carbon Dioxide 22 mmol/L (23-31); Chloride 105 mmol/L (98-107); Estimated GFR 70; Glucose 289 mg/dL (80-115); Magnesium 1.8 mg/dL (1.6-2.6); Potassium 4.6 mmol/L (3.5-5.1); Sodium 134 mmol/L (136-145)
[2023-04-23 17:24] LABS: Cardiac Risk 6.4 (Less than 4.5); Cholesterol 219 mg/dl (< 200 Desired); HDL Cholesterol 34 mg/dL (>60 Neg Risk); LDL Cholesterol, Calculated 143 mg/dL; Phosphorus 4.3 mg/dL (2.3-4.7); Triglycerides 209 mg/dL (Less than 150)
[2023-04-23] MEDS: HumaLOG 300 UNITS/3 ML VIAL SC PRN (18:36)
[2023-04-23] MEDS: Ranolazine 500 MG ER.TAB PO SCH (21:35)
[2023-04-23] MEDS: Atorvastatin Calcium 40 MG TAB PO SCH (21:35)
[2023-04-23] MEDS: Metoprolol Tartrate 100 MG TAB PO SCH (21:37)
[2023-04-24] MEDS: Ipratropium/Albuterol 3 ML NEB NEB SCH ×6 (02:52→22:53)
[2023-04-24] MEDS: traMADol HCl 50 MG TAB PO PRN ×3 (04:04→17:55)
[2023-04-24] MEDS: HumaLOG 300 UNITS/3 ML VIAL SC PRN ×3 (07:04→17:57)
[2023-04-24] MEDS: Gabapentin 100 MG CAP PO SCH ×3 (09:59→21:03)
[2023-04-24] MEDS: Aspirin Chewable 81 MG TAB PO SCH (10:01)
[2023-04-24] MEDS: Ranolazine 500 MG ER.TAB PO SCH (10:01)
[2023-04-24] MEDS: PHOS-NAK 1 PKT PACK PO SCH (10:02)
[2023-04-24] MEDS: Metoprolol Tartrate 100 MG TAB PO SCH ×2 (10:02→21:02)
[2023-04-24] MEDS ORDERED: hydrALAZINE 20 MG/ML VIAL SLOW IVP PRN (17:56)
[2023-04-24] MEDS ORDERED: NIFEdipine XL 30 MG ER.TAB PO SCH (18:00)
[2023-04-24] MEDS: Atorvastatin Calcium 40 MG TAB PO SCH (21:02)
[2023-04-24] MEDS: Acetaminophen 325 MG TAB PO PRN (21:05)
[2023-04-25] MEDS: traMADol HCl 50 MG TAB PO PRN ×3 (01:03→20:30)
[2023-04-25] MEDS: Ipratropium/Albuterol 3 ML NEB NEB SCH ×5 (01:26→18:39)
[2023-04-25 06:27] LABS: #Eosinphils 0.1 thou/uL (0.0-0.7); #Monocytes 0.9 thou/uL (0.11-0.59); #Neutrophils 5.6 thou/uL (1.40-6.50); %Basophils 0.3 % (0.0-1.0); %Eosinophils 0.8 % (0.0-10.0); %Lymphocytes 22.4 % (21.0-51.0); %Monocytes 10.2 % (0.0-10.0); %Neutrophils 65.7 % (42.0-75.0); Hematocrit 37.3 % (36.0-47.0); Hemoglobin 12.3 g/dL (12.0-16.0); Mean Corpuscular Hemoglobin 30.8 pg (27.0-31.0); Mean Corpuscular Volume 93.3 fl (78.0-98.0); Platelet Count 188 10x3/uL (130-400); RBC Distribution Width 12.7 % (11.5-14.5); White Blood Cell (WBC) Count 8.6 10x3/uL (4.8-10.8)
[2023-04-25 07:06] LABS: Anion Gap 11 mmol/L (10-20); BUN (Urea Nitrogen) 15 mg/dL (9.8-20.1); Calc. Creatinine Clearance 72 mL/min (70-130); Calcium 9.1 mg/dL (7.8-10.44); Carbon Dioxide 27 mmol/L (23-31); Chloride 103 mmol/L (98-107); Estimated GFR 83; Glucose 155 mg/dL (80-115); Potassium 3.8 mmol/L (3.5-5.1); Sodium 137 mmol/L (136-145)
[2023-04-25] MEDS: Lactated Ringer's 1,000 ML IV SCH (07:57)
[2023-04-25] MEDS: Aspirin Chewable 81 MG TAB PO SCH (08:52)
[2023-04-25] MEDS: Acetaminophen 325 MG TAB PO PRN ×2 (08:56→21:26)
[2023-04-25] MEDS: Gabapentin 100 MG CAP PO SCH ×3 (08:58→20:29)
[2023-04-25] MEDS: NIFEdipine XL 30 MG ER.TAB PO SCH (08:58)
[2023-04-25] MEDS: Metoprolol Tartrate 100 MG TAB PO SCH ×2 (08:58→20:29)
[2023-04-25] MEDS ORDERED: Heparin 5,000 UNITS/ML VIAL ONE (13:23)
[2023-04-25] MEDS ORDERED: Protamine Sulfate 50 MG/5 ML VIAL ONE (13:23)
[2023-04-25] MEDS ORDERED: fentaNYL PF 100 MCG/2 ML SYRINGE ONE (13:30)
[2023-04-25] MEDS ORDERED: CEFAZOLIN 2 GM VIAL ONE (13:41)
[2023-04-25] MEDS ORDERED: Sodium Chloride 0.9% 100 ML ONE (13:42)
[2023-04-25] MEDS ORDERED: Lidocaine 1% PF 5 ML VIAL ONE (14:05)
[2023-04-25] MEDS ORDERED: ePHEDrine Sulfate 50 MG/10 ML VIAL ONE (14:05)
[2023-04-25] MEDS ORDERED: PROPOFOL 200 MG/20 ML VIAL ONE (14:05)
[2023-04-25] MEDS ORDERED: Dexamethasone 20 MG/5 ML VIAL ONE (14:05)
[2023-04-25] MEDS ORDERED: Ondansetron PF 4 MG/2 ML Vial ONE (14:05)
[2023-04-25] MEDS ORDERED: Rocuronium Bromide 10 MG/ML (10ML VIAL) ONE (14:05)
[2023-04-25] MEDS ORDERED: Sevoflurane 250 ML INH ANEST BOTTLE ONE (17:41)
[2023-04-25] MEDS ORDERED: Ondansetron PF 4 MG/2 ML Vial IVP PRN (18:15)
[2023-04-25] MEDS ORDERED: Ipratropium/Albuterol 3 ML NEB NEB PRN (18:15)
[2023-04-25] MEDS ORDERED: fentaNYL 50 mcg/mL 1 mL Vial SLOW IVP PRN ×2 (18:15)
[2023-04-25] MEDS ORDERED: Ondansetron HCl/PF 4 MG/2 ML Vial IVP PRN (18:28)
[2023-04-25] MEDS ORDERED: fentaNYL 50 mcg/mL 1 mL Vial ONE ×3 (18:43→19:21)
[2023-04-25] MEDS: CEFAZOLIN 2 GM in Sodium Chloride 0.9% 100 ML IVPB SCH (20:30)
[2023-04-25] MEDS: Atorvastatin Calcium 40 MG TAB PO SCH (20:30)
[2023-04-25] MEDS: HumaLOG 300 UNITS/3 ML VIAL SC PRN (21:19)
[2023-04-26] MEDS: Ipratropium/Albuterol 3 ML NEB NEB SCH ×7 (01:03→22:26)
[2023-04-26] MEDS: CEFAZOLIN 2 GM in Sodium Chloride 0.9% 100 ML IVPB SCH ×2 (03:00→10:00)
[2023-04-26] MEDS: traMADol HCl 50 MG TAB PO PRN ×3 (03:00→19:33)
[2023-04-26] MEDS: Lactated Ringer's 1,000 ML IV SCH (03:00)
[2023-04-26 05:37] LABS: #Monocytes 0.9 thou/uL (0.11-0.59); %Basophils 0.1 % (0.0-1.0); %Monocytes 7.3 % (0.0-10.0); %Neutrophils 87.1 % (42.0-75.0); Hematocrit 29.2 % (36.0-47.0); Hemoglobin 9.8 g/dL (12.0-16.0); Mean Corpuscular HGB CONC 33.6 g/dL (32.0-36.0); Mean Corpuscular Hemoglobin 30.8 pg (27.0-31.0); Mean Corpuscular Volume 91.8 fl (78.0-98.0); Mean Platelet Volume 12.4 fL (7.4-10.4); Platelet Count 148 10x3/uL (130-400); RBC Distribution Width 12.7 % (11.5-14.5); Red Blood Cell (RBC) Count 3.18 mill/uL (4.20-5.40); White Blood Cell (WBC) Count 12.6 10x3/uL (4.8-10.8)
[2023-04-26 06:10] LABS: Anion Gap 12 mmol/L (10-20); BUN (Urea Nitrogen) 14 mg/dL (9.8-20.1); Calc. Creatinine Clearance 62 mL/min (70-130); Calcium 7.5 mg/dL (7.8-10.44); Carbon Dioxide 20 mmol/L (23-31); Chloride 104 mmol/L (98-107); Estimated GFR 69; Glucose 400 mg/dL (80-115); Potassium 4.3 mmol/L (3.5-5.1); Sodium 132 mmol/L (136-145)
[2023-04-26] MEDS: HumaLOG 300 UNITS/3 ML VIAL SC PRN ×4 (06:24→20:38)
[2023-04-26] MEDS: Gabapentin 100 MG CAP PO SCH ×3 (09:56→20:37)
[2023-04-26] MEDS: Acetaminophen 325 MG TAB PO PRN ×2 (09:57→20:38)
[2023-04-26] MEDS: Clopidogrel Bisulfate 75 MG TAB PO SCH (09:57)
[2023-04-26] MEDS: Metoprolol Tartrate 100 MG TAB PO SCH ×2 (09:57→20:38)
[2023-04-26] MEDS: NIFEdipine XL 30 MG ER.TAB PO SCH (09:58)
[2023-04-26] MEDS: Aspirin Chewable 81 MG TAB PO SCH (09:58)
[2023-04-26] MEDS ORDERED: Insulin Glargine 30 UNITS/0.3 ML VIAL SC SCH (12:45)
[2023-04-26] MEDS ORDERED: Polyethylene Glycol 3350 17 GM Packet PO SCH (13:00)
[2023-04-26] MEDS: Atorvastatin Calcium 40 MG TAB PO SCH (20:37)
[2023-04-26] MEDS: Senokot S 8.6-50 MG TAB PO SCH (20:38)
[2023-04-27] MEDS: Ipratropium/Albuterol 3 ML NEB NEB SCH ×6 (02:18→21:47)
[2023-04-27] MEDS: traMADol HCl 50 MG TAB PO PRN ×3 (02:27→14:44)
[2023-04-27] MEDS: HumaLOG 300 UNITS/3 ML VIAL SC PRN ×3 (06:11→16:39)
[2023-04-27 07:46] LABS: Anion Gap 12 mmol/L (10-20); BUN (Urea Nitrogen) 18 mg/dL (9.8-20.1); Calc. Creatinine Clearance 67 mL/min (70-130); Calcium 8.1 mg/dL (7.8-10.44); Carbon Dioxide 24 mmol/L (23-31); Chloride 105 mmol/L (98-107); Estimated GFR 76; Glucose 191 mg/dL (80-115); Sodium 137 mmol/L (136-145)
[2023-04-27] MEDS: NIFEdipine XL 30 MG ER.TAB PO SCH (08:22)
[2023-04-27] MEDS: Metoprolol Tartrate 100 MG TAB PO SCH ×2 (08:22→20:01)
[2023-04-27] MEDS: Polyethylene Glycol 3350 17 GM Packet PO SCH (08:23)
[2023-04-27] MEDS: Senokot S 8.6-50 MG TAB PO SCH ×2 (08:23→20:02)
[2023-04-27] MEDS: Clopidogrel Bisulfate 75 MG TAB PO SCH (08:23)
[2023-04-27] MEDS: Aspirin Chewable 81 MG TAB PO SCH (08:23)
[2023-04-27] MEDS: Gabapentin 100 MG CAP PO SCH ×3 (08:24→20:00)
[2023-04-27] MEDS: Insulin Glargine 30 UNITS/0.3 ML VIAL SC SCH (08:25)
[2023-04-27] MEDS: Cyclobenzaprine 10 MG TAB PO PRN ×2 (13:47→20:02)
[2023-04-27] MEDS: Acetaminophen 325 MG TAB PO PRN (18:36)
[2023-04-27] MEDS: Atorvastatin Calcium 40 MG TAB PO SCH (20:01)
[2023-04-27] MEDS: Ranolazine 500 MG ER.TAB PO SCH (20:02)
[2023-04-28] MEDS: Ipratropium/Albuterol 3 ML NEB NEB SCH ×6 (01:34→23:16)
[2023-04-28 05:00] LABS: #Basophils 0.1 thou/uL (0.0-0.2); #Eosinphils 0.1 thou/uL (0.0-0.7); #Monocytes 1.2 thou/uL (0.11-0.59); #Neutrophils 7.9 thou/uL (1.40-6.50); %Basophils 0.4 % (0.0-1.0); %Eosinophils 0.6 % (0.0-10.0); %Lymphocytes 21.8 % (21.0-51.0); %Monocytes 10.4 % (0.0-10.0); %Neutrophils 66.2 % (42.0-75.0); Hematocrit 32.6 % (36.0-47.0); Hemoglobin 10.6 g/dL (12.0-16.0); Mean Corpuscular HGB CONC 32.5 g/dL (32.0-36.0); Mean Corpuscular Hemoglobin 30.3 pg (27.0-31.0); Mean Corpuscular Volume 93.1 fl (78.0-98.0); Mean Platelet Volume 11.5 fL (7.4-10.4); Platelet Count 212 10x3/uL (130-400); RBC Distribution Width 12.9 % (11.5-14.5); White Blood Cell (WBC) Count 11.9 10x3/uL (4.8-10.8)
[2023-04-28 05:24] LABS: Anion Gap 14 mmol/L (10-20); BUN (Urea Nitrogen) 16 mg/dL (9.8-20.1); Calc. Creatinine Clearance 71 mL/min (70-130); Calcium 8.8 mg/dL (7.8-10.44); Carbon Dioxide 26 mmol/L (23-31); Chloride 104 mmol/L (98-107); Estimated GFR 82; Glucose 154 mg/dL (80-115); Sodium 140 mmol/L (136-145)
[2023-04-28] MEDS: traMADol HCl 50 MG TAB PO PRN ×2 (09:41→17:58)
[2023-04-28] MEDS: NIFEdipine XL 30 MG ER.TAB PO SCH (09:42)
[2023-04-28] MEDS: Polyethylene Glycol 3350 17 GM Packet PO SCH (09:42)
[2023-04-28] MEDS: Senokot S 8.6-50 MG TAB PO SCH ×2 (09:42→19:57)
[2023-04-28] MEDS: Gabapentin 100 MG CAP PO SCH ×3 (09:42→19:56)
[2023-04-28] MEDS: Metoprolol Tartrate 100 MG TAB PO SCH ×2 (09:43→19:57)
[2023-04-28] MEDS: Ranolazine 500 MG ER.TAB PO SCH ×2 (09:43→19:56)
[2023-04-28] MEDS: Clopidogrel Bisulfate 75 MG TAB PO SCH (09:43)
[2023-04-28] MEDS: Aspirin Chewable 81 MG TAB PO SCH (09:44)
[2023-04-28] MEDS: Insulin Glargine 30 UNITS/0.3 ML VIAL SC SCH (09:44)
[2023-04-28] MEDS: HumaLOG 300 UNITS/3 ML VIAL SC PRN (12:58)
[2023-04-28] MEDS: Cyclobenzaprine 10 MG TAB PO PRN (19:56)
[2023-04-28] MEDS: Atorvastatin Calcium 40 MG TAB PO SCH (19:57)
[2023-04-29] MEDS: traMADol HCl 50 MG TAB PO PRN (02:09)
[2023-04-29] MEDS: Ipratropium/Albuterol 3 ML NEB NEB SCH ×2 (06:37→07:17)
[2023-04-29 08:40] VITALS: BP 148/68; TEMP 97.5
[2023-04-29] MEDS: Metoprolol Tartrate 100 MG TAB PO SCH (09:35)
[2023-04-29] MEDS: Gabapentin 100 MG CAP PO SCH (09:35)
[2023-04-29] MEDS: Ranolazine 500 MG ER.TAB PO SCH (09:35)
[2023-04-29] MEDS: NIFEdipine XL 30 MG ER.TAB PO SCH (09:35)
[2023-04-29] MEDS: Clopidogrel Bisulfate 75 MG TAB PO SCH (09:35)
[2023-04-29] MEDS: Insulin Glargine 30 UNITS/0.3 ML VIAL SC SCH (09:36)
[2023-04-29] MEDS: Aspirin Chewable 81 MG TAB PO SCH (09:37)
[2023-04-29] MEDS: Senokot S 8.6-50 MG TAB PO SCH (09:37)
[2023-04-29] MEDS: Polyethylene Glycol 3350 17 GM Packet PO SCH (09:37)
== END 2023-04-29 11:30 | disposition home or self-care (01) | DRG 253 ==
LOC: ERS 19:08 → SURG A 22:52 → 2NO 04-23 00:53
PROVIDERS: ADMIT Internal Medicine; ATTEND Family Medicine
PROC: 041K09L Bypass Right Femoral Artery to Popliteal Artery with Autologous Venous Tissue, Open Approach (ICD-10-PCS; principal; 2023-04-25)
PROC: 047H3DZ Dilation of Right External Iliac Artery with Intraluminal Device, Percutaneous Approach (ICD-10-PCS; 2023-04-25)
PROC: 04CK0ZZ Extirpation of Matter from Right Femoral Artery, Open Approach (ICD-10-PCS; 2023-04-25)
PROC: 3E033XZ Introduction of Vasopressor into Peripheral Vein, Percutaneous Approach (ICD-10-PCS; 2023-04-25)
DX: E11.51 Type 2 diabetes mellitus with diabetic peripheral angiopathy without gangrene (principal); L03.115 Cellulitis of right lower limb; N39.0 Urinary tract infection, site not specified; I10 Essential (primary) hypertension; I25.10 Atherosclerotic heart disease of native coronary artery without angina pectoris; I70.201 Unspecified atherosclerosis of native arteries of extremities, right leg; F17.210 Nicotine dependence, cigarettes, uncomplicated; E11.9 Type 2 diabetes mellitus without complications; R06.02 Shortness of breath; E11.40 Type 2 diabetes mellitus with diabetic neuropathy, unspecified; F41.9 Anxiety disorder, unspecified; F32.A Depression, unspecified; K59.00 Constipation, unspecified; E78.00 Pure hypercholesterolemia, unspecified; E83.42 Hypomagnesemia; E87.6 Hypokalemia; E83.39 Other disorders of phosphorus metabolism; E11.65 Type 2 diabetes mellitus with hyperglycemia; Z88.5 Allergy status to narcotic agent; Z88.2 Allergy status to sulfonamides; Z79.82 Long term (current) use of aspirin; Z79.899 Other long term (current) drug therapy; Z79.4 Long term (current) use of insulin; Z79.2 Long term (current) use of antibiotics; Z71.6 Tobacco abuse counseling; Z90.49 Acquired absence of other specified parts of digestive tract; Z90.710 Acquired absence of both cervix and uterus; Z90.89 Acquired absence of other organs; Z98.890 Other specified postprocedural states
CPT/HCPCS: 36415; 36416; 71045; 75635; 80048; 80053; 80061; 81001; 83036; 83605; 83735; 83880; 84100; 84145; 84484; 85025; 85610; 85730; 86850; 86900; 86901; 87040; 93005; 93306; 96365; 96375; C1876; C1894; C9113; J0692; J1100; J1642; J1644; J1650; J1815; J1885; J2405; J2704; J2720; J3010; J3370; J3475; J3490; J7030; J7050; J7120; J7620; Q9967

== ENCOUNTER 2024-06-21 16:17 | Inpatient (IN) | payer MEDICARE, OTHER ==
[2024-06-21 16:48] LABS: #Basophils 0.06 10x3/uL (0.0-0.2); %Basophils 0.5 % (0.0-1.0); %Eosinophils 0.6 % (0.0-10.0); %Lymphocytes 18.1 % (21.0-51.0); %Monocytes 8.8 % (0.0-10.0); %Neutrophils 71.6 % (42.0-75.0); Hematocrit 31.4 % (36.0-47.0); Hemoglobin 10.1 g/dL (12.0-16.0); Mean Corpuscular HGB CONC 32.2 g/dL (32.0-36.0); Mean Corpuscular Hemoglobin 30.2 pg (27.0-31.0); Platelet Count 318 10x3/uL (130-400); RBC Distribution Width 13.5 % (11.5-14.5); Red Blood Cell (RBC) Count 3.34 mill/uL (4.20-5.40)
[2024-06-21 17:04] LABS: ALT (SGPT) 12 U/L (8-55); AST (SGOT) 17 U/L (5-34); Albumin 3.3 g/dL (3.4-4.8); Alkaline Phosphatase 81 U/L (40-110); Anion Gap 13 mmol/L (10-20); BUN (Urea Nitrogen) 26 mg/dL (9.8-20.1); Bilirubin, Total 0.2 mg/dL (0.2-1.2); Calc. Creatinine Clearance 0 mL/min (70-130); Carbon Dioxide 25 mmol/L (23-31); Chloride 104 mmol/L (98-107); Estimated GFR 48; Globulin 5.3 g/dL (2.4-3.5); Glucose 150 mg/dL (80-115); Protein, Total 8.6 g/dL (5.8-8.1); Sodium 137 mmol/L (136-145)
[2024-06-21] MEDS ORDERED: Acetaminophen 500 MG TAB ONE (18:12)
[2024-06-21 18:30] LABS: Prothrombin Time 12.7 sec (12.0-14.7)
[2024-06-21 18:31] LABS: PTT 29.5 sec (22.9-36.1)
[2024-06-21] MEDS ORDERED: Ondansetron PF 4 MG/2 ML Vial IVP PRN (18:42)
[2024-06-21] MEDS ORDERED: Glucagon 1 MG/ML KIT IM PRN (18:49)
[2024-06-21] MEDS ORDERED: Dextrose 50% Abboject 50 ML SYRINGE SLOW IVP PRN (18:49)
[2024-06-21] MEDS ORDERED: Dextrose 5% in Water 1,000 ML IV PRN (18:49)
[2024-06-21] MEDS ORDERED: Nitroglycerin 0.4 MG TAB (25 Tab Bottle) SL PRN (18:50)
[2024-06-21 19:40] VITALS: BMI 24.3
[2024-06-21] MEDS: Vancomycin (BATCH) 1.75 GM in Premix 1 BAG IVPB SCH (20:47)
[2024-06-21] MEDS: Rosuvastatin 20 MG TAB PO SCH (20:48)
[2024-06-21] MEDS: hydrALAZINE 25 MG TAB PO SCH (20:49)
[2024-06-21] MEDS: Gabapentin 100 MG CAP PO SCH (20:49)
[2024-06-21] MEDS: busPIRone HCl 10 MG TAB PO SCH (20:49)
[2024-06-21] MEDS: Nicotine 21 MG PATCH TD SCH (20:50)
[2024-06-21] MEDS: Furosemide 40 MG (4 mL) VIAL SLOW IVP SCH (20:50)
[2024-06-21] MEDS ORDERED: Vancomycin 1 GM in Premix 1 BAG IVPB SCH (21:00)
[2024-06-21] MEDS: Ampicillin/Sulbactam 3 GM in Sodium Chloride 0.9% 100 ML IVPB SCH (21:03)
[2024-06-21] MEDS: fentaNYL 50 mcg/mL 1 mL Vial SLOW IVP PRN (22:44)
[2024-06-22 05:40] LABS: #Basophils 0.07 10x3/uL (0.0-0.2); %Basophils 0.7 % (0.0-1.0); %Lymphocytes 19.7 % (21.0-51.0); %Neutrophils 65.2 % (42.0-75.0); Hematocrit 26.6 % (36.0-47.0); Hemoglobin 8.5 g/dL (12.0-16.0); Mean Platelet Volume 11.2 fL (7.4-10.4); Platelet Count 249 10x3/uL (130-400); RBC Distribution Width 13.6 % (11.5-14.5); Red Blood Cell (RBC) Count 2.83 mill/uL (4.20-5.40)
[2024-06-22 05:52] LABS: Vancomycin, Random 23.9 ug/mL (See Comment)
[2024-06-22 05:54] LABS: Anion Gap 10 mmol/L (10-20); BUN (Urea Nitrogen) 25 mg/dL (9.8-20.1); Calc. Creatinine Clearance 54 mL/min (70-130); Calcium 9.1 mg/dL (7.8-10.44); Carbon Dioxide 24 mmol/L (23-31); Chloride 107 mmol/L (98-107); Estimated GFR 55; Glucose 124 mg/dL (80-115); Potassium 4.4 mmol/L (3.5-5.1); Sodium 137 mmol/L (136-145)
[2024-06-22] MEDS ORDERED: Non-Formulary Item 1 EACH (Losartan Potassium [Losartan Potassium] 100 MG Tablet) PO SCH (09:00)
[2024-06-22] MEDS: Pantoprazole 40 MG DR.TAB PO SCH (09:12)
[2024-06-22] MEDS: Metoprolol Tartrate 50 MG TAB PO SCH (09:12)
[2024-06-22 10:10] VITALS: BMI 24.3
[2024-06-22] MEDS ORDERED: Bupivacaine PF 0.5% 30 ML VIAL ONE (10:36)
[2024-06-22] MEDS ORDERED: PROPOFOL 40 ML ONE (11:07)
[2024-06-22] MEDS ORDERED: Lidocaine 1% PF 5 ML VIAL ONE (11:08)
[2024-06-22] MEDS: Amlodipine 5 MG TAB PO SCH (11:47)
[2024-06-22] MEDS: Losartan 25 MG TAB PO SCH (11:48)
[2024-06-22] MEDS ORDERED: PHENYLEPHRINE-NS 100 MCG/ML 10 ML SYRINGE ONE (11:55)
[2024-06-22] MEDS ORDERED: Docusate 100 MG CAP PO PRN (13:47)
[2024-06-22] MEDS ORDERED: Polyethylene Glycol 3350 17 GM Packet PO PRN (13:47)
[2024-06-22] MEDS: Acetaminophen 325 MG TAB PO PRN (16:26)
[2024-06-22] MEDS: Vancomycin 1 GM in Premix 1 BAG IVPB SCH (17:33)
[2024-06-22] MEDS: traMADol HCl 50 MG TAB PO PRN (17:33)
[2024-06-22] MEDS: Insulin Lispro 100 UNIT/ML 10 ML VIAL SC PRN (17:34)
[2024-06-22] MEDS ORDERED: Vancomycin (BATCH) 1.25 GM in Premix 1 BAG IVPB SCH (18:00)
[2024-06-22] MEDS: fentaNYL 50 mcg/mL 1 mL Vial SLOW IVP PRN (21:37)
[2024-06-22] MEDS: traMADol HCl 50 MG TAB PO SCH (22:02)
[2024-06-23 05:33] LABS: Hematocrit 25.9 % (36.0-47.0); Hemoglobin 8.4 g/dL (12.0-16.0); Mean Corpuscular HGB CONC 32.4 g/dL (32.0-36.0); Mean Corpuscular Hemoglobin 30.5 pg (27.0-31.0); Mean Corpuscular Volume 94.2 fL (78.0-98.0); Platelet Count 249 10x3/uL (130-400); RBC Distribution Width 13.4 % (11.5-14.5); Red Blood Cell (RBC) Count 2.75 mill/uL (4.20-5.40)
[2024-06-23 05:53] LABS: Anion Gap 12 mmol/L (10-20); BUN (Urea Nitrogen) 28 mg/dL (9.8-20.1); Calc. Creatinine Clearance 39 mL/min (70-130); Calcium 8.5 mg/dL (7.8-10.44); Carbon Dioxide 23 mmol/L (23-31); Chloride 101 mmol/L (98-107); Estimated GFR 36; Glucose 230 mg/dL (80-115); Potassium 4.9 mmol/L (3.5-5.1); Sodium 131 mmol/L (136-145)
[2024-06-23] MEDS: Sodium Chloride 0.9% 1,000 ML IV SCH (08:26)
[2024-06-23] MEDS: traMADol HCl 50 MG TAB PO PRN (10:56)
[2024-06-23] MEDS: Polyethylene Glycol 3350 17 GM Packet PO SCH (11:00)
[2024-06-23] MEDS: Docusate 100 MG CAP PO SCH (11:00)
[2024-06-23] MEDS: Gabapentin 100 MG CAP PO SCH (20:15)
[2024-06-23] MEDS: Vancomycin 1 GM in Premix 1 BAG IVPB SCH (20:17)
[2024-06-24 04:37] LABS: Hematocrit 23.9 % (36.0-47.0); Hemoglobin 7.7 g/dL (12.0-16.0); Mean Corpuscular HGB CONC 32.2 g/dL (32.0-36.0); Mean Corpuscular Hemoglobin 30.6 pg (27.0-31.0); Mean Corpuscular Volume 94.8 fL (78.0-98.0); Mean Platelet Volume 11.4 fL (7.4-10.4); Platelet Count 250 10x3/uL (130-400); RBC Distribution Width 13.4 % (11.5-14.5); Red Blood Cell (RBC) Count 2.52 mill/uL (4.20-5.40)
[2024-06-24 04:53] LABS: Hemoglobin A1c 7.1 % (4.0-6.0)
[2024-06-24 04:56] LABS: Vancomycin, Random 31.6 ug/mL (See Comment)
[2024-06-24 05:01] LABS: Anion Gap 13 mmol/L (10-20); BUN (Urea Nitrogen) 31 mg/dL (9.8-20.1); Calc. Creatinine Clearance 42 mL/min (70-130); Calcium 9.1 mg/dL (7.8-10.44); Carbon Dioxide 22 mmol/L (23-31); Chloride 108 mmol/L (98-107); Estimated GFR 41; Glucose 114 mg/dL (80-115); Potassium 5.1 mmol/L (3.5-5.1); Sodium 138 mmol/L (136-145)
[2024-06-24] MEDS: Vancomycin HCl 750 MG in Sodium Chloride 0.9% 250 ML 250 ML IVPB SCH (23:10)
[2024-06-25 05:28] LABS: Hematocrit 24.4 % (36.0-47.0); Hemoglobin 7.7 g/dL (12.0-16.0); Mean Corpuscular HGB CONC 31.6 g/dL (32.0-36.0); Mean Corpuscular Hemoglobin 30.3 pg (27.0-31.0); Mean Corpuscular Volume 96.1 fL (78.0-98.0); Mean Platelet Volume 11.2 fL (7.4-10.4); Platelet Count 240 10x3/uL (130-400); RBC Distribution Width 13.3 % (11.5-14.5); Red Blood Cell (RBC) Count 2.54 mill/uL (4.20-5.40)
[2024-06-25 06:01] LABS: Anion Gap 12 mmol/L (10-20); BUN (Urea Nitrogen) 32 mg/dL (9.8-20.1); Calc. Creatinine Clearance 41 mL/min (70-130); Calcium 9.2 mg/dL (7.8-10.44); Carbon Dioxide 23 mmol/L (23-31); Chloride 108 mmol/L (98-107); Estimated GFR 39; Glucose 93 mg/dL (80-115); Potassium 4.7 mmol/L (3.5-5.1); Sodium 138 mmol/L (136-145)
[2024-06-25] MEDS: Amlodipine 10 MG TAB PO SCH (08:04)
[2024-06-26 05:21] LABS: Hematocrit 21.4 % (36.0-47.0); Hemoglobin 6.9 g/dL (12.0-16.0); Mean Corpuscular HGB CONC 32.2 g/dL (32.0-36.0); Mean Corpuscular Hemoglobin 30.3 pg (27.0-31.0); Mean Corpuscular Volume 93.9 fL (78.0-98.0); Mean Platelet Volume 11.7 fL (7.4-10.4); Platelet Count 205 10x3/uL (130-400); RBC Distribution Width 13.4 % (11.5-14.5); Red Blood Cell (RBC) Count 2.28 mill/uL (4.20-5.40)
[2024-06-26 05:42] LABS: Vancomycin, Random 30.2 ug/mL (See Comment)
[2024-06-26 05:50] LABS: Anion Gap 11 mmol/L (10-20); BUN (Urea Nitrogen) 35 mg/dL (9.8-20.1); Calc. Creatinine Clearance 35 mL/min (70-130); Calcium 8.4 mg/dL (7.8-10.44); Carbon Dioxide 24 mmol/L (23-31); Chloride 108 mmol/L (98-107); Estimated GFR 32; Glucose 148 mg/dL (80-115); Potassium 4.6 mmol/L (3.5-5.1); Sodium 138 mmol/L (136-145)
[2024-06-26 16:48] LABS: Hematocrit 26.4 % (36.0-47.0); Hemoglobin 8.6 g/dL (12.0-16.0)
[2024-06-26] MEDS: Vancomycin HCl 500 MG in Sodium Chloride 0.9% 100 ML IVPB SCH (23:44)
[2024-06-27 05:26] LABS: Hematocrit 25.6 % (36.0-47.0); Hemoglobin 8.3 g/dL (12.0-16.0); Mean Corpuscular HGB CONC 32.4 g/dL (32.0-36.0); Mean Corpuscular Hemoglobin 29.5 pg (27.0-31.0); Mean Corpuscular Volume 91.1 fL (78.0-98.0); Mean Platelet Volume 11.8 fL (7.4-10.4); Platelet Count 215 10x3/uL (130-400); RBC Distribution Width 15.4 % (11.5-14.5); Red Blood Cell (RBC) Count 2.81 mill/uL (4.20-5.40)
[2024-06-27 06:30] LABS: Anion Gap 13 mmol/L (10-20); BUN (Urea Nitrogen) 37 mg/dL (9.8-20.1); Calc. Creatinine Clearance 39 mL/min (70-130); Calcium 8.8 mg/dL (7.8-10.44); Carbon Dioxide 21 mmol/L (23-31); Chloride 107 mmol/L (98-107); Estimated GFR 37; Glucose 154 mg/dL (80-115); Potassium 4.3 mmol/L (3.5-5.1); Sodium 137 mmol/L (136-145)
[2024-06-27 11:39] VITALS: BP 140/46; TEMP 98.1
== END 2024-06-27 15:10 | disposition home health service (06) | DRG 579 ==
LOC: ERS 16:17 → SURG A 18:17
PROVIDERS: ADMIT Internal Medicine; ATTEND Internal Medicine
PROC: 0Y6M0ZD Detachment at Right Foot, Partial 4th Ray, Open Approach (ICD-10-PCS; principal; 2024-06-22)
PROC: 30233N1 Transfusion of Nonautologous Red Blood Cells into Peripheral Vein, Percutaneous Approach (ICD-10-PCS; 2024-06-26)
DX: L03.115 Cellulitis of right lower limb (principal); I21.A1 Myocardial infarction type 2; E87.1 Hypo-osmolality and hyponatremia; J98.11 Atelectasis; I50.32 Chronic diastolic (congestive) heart failure; N17.9 Acute kidney failure, unspecified; E11.9 Type 2 diabetes mellitus without complications; F17.200 Nicotine dependence, unspecified, uncomplicated; I25.2 Old myocardial infarction; I11.0 Hypertensive heart disease with heart failure; E78.5 Hyperlipidemia, unspecified; I25.10 Atherosclerotic heart disease of native coronary artery without angina pectoris; I73.9 Peripheral vascular disease, unspecified; G62.9 Polyneuropathy, unspecified; Z79.899 Other long term (current) drug therapy; Z79.82 Long term (current) use of aspirin; Z95.5 Presence of coronary angioplasty implant and graft; Z90.49 Acquired absence of other specified parts of digestive tract; Z88.6 Allergy status to analgesic agent; Z88.1 Allergy status to other antibiotic agents; Z88.8 Allergy status to other drugs, medicaments and biological substances
CPT/HCPCS: 36415; 36416; 36430; 71045; 80048; 80053; 80202; 83036; 83605; 85025; 85027; 85610; 85730; 86850; 86900; 86901; 87081; 88305; 88311; 93005; 96374; 97139; 99214; G0463; J0295; J0665; J1815; J1940; J2704; J3010; J3370; J7030; J7050; P9016

== ENCOUNTER 2024-07-20 14:40 | Emergency (ER) | payer MEDICARE, OTHER ==
[2024-07-20] MEDS ORDERED: Acetaminophen 500 MG TAB ONE (15:48)
[2024-07-20] MEDS ORDERED: HYDROmorphone 0.5 MG/0.5 ML SYRINGE ONE (15:49)
[2024-07-20 15:59] LABS: Actual Bicarbonate (HCO3v) 21.1 mEq/L (22-28); Analyzer IN Cardio ER; Base Excess -1.2 mEq/L (-2.0 to +3.0); Calcium, Ionized (venous) 1.11 mmol/L (1.16-1.32); Chloride (VBG) 107 mmol/L (98-106); Hematocrit-VBG 28 % (36.0-47.0); Hemoglobin (Hb) 9.5 g/dL (11.7-16.1); Potassium (VBG) 5.18 mmol/L (3.70-5.30); Sodium 137 mmol/L (133-146); pH (venous) 7.505 (7.32-7.43)
[2024-07-20 16:01] LABS: #Basophils 0.05 10x3/uL (0.0-0.2); %Basophils 0.6 % (0.0-1.0); %Eosinophils 1.4 % (0.0-10.0); %Lymphocytes 21.1 % (21.0-51.0); %Monocytes 11.2 % (0.0-10.0); %Neutrophils 65.5 % (42.0-75.0); Hematocrit 25.8 % (36.0-47.0); Hemoglobin 8.3 g/dL (12.0-16.0); Mean Corpuscular HGB CONC 32.2 g/dL (32.0-36.0); Mean Corpuscular Hemoglobin 30.5 pg (27.0-31.0); Mean Corpuscular Volume 94.9 fL (78.0-98.0); Mean Platelet Volume 11.6 fL (7.4-10.4); Platelet Count 230 10x3/uL (130-400); RBC Distribution Width 14.7 % (11.5-14.5); Red Blood Cell (RBC) Count 2.72 mill/uL (4.20-5.40)
[2024-07-20 16:15] LABS: ALT (SGPT) 13 U/L (Less than 34); AST (SGOT) 27 U/L (11-34); Albumin 3.2 g/dL (3.1-4.5); Alkaline Phosphatase 75 U/L (40-110); Anion Gap 14 mmol/L (10-20); BUN (Urea Nitrogen) 45 mg/dL (9.8-20.1); Bilirubin, Total 0.2 mg/dL (0.3-1.2); Calc. Creatinine Clearance 0 mL/min (70-130); Calcium 9.6 mg/dL (7.8-10.44); Carbon Dioxide 20 mmol/L (23-31); Chloride 108 mmol/L (98-107); Estimated GFR 34; Globulin 4.5 g/dL (2.4-3.5); Glucose 162 mg/dL (80-115); Potassium 5.3 mmol/L (3.5-5.1); Protein, Total 7.7 g/dL (5.8-8.1); Sodium 137 mmol/L (136-145)
[2024-07-20 16:20] LABS: Troponin I 0.016 ng/mL (< 0.028)
[2024-07-20] MEDS ORDERED: Furosemide 20 MG (2 mL) VIAL ONE (18:11)
== END 2024-07-20 16:25 | disposition home or self-care (01) ==
LOC: ERS 14:40
DX: L03.115 Cellulitis of right lower limb (principal); I13.0 Hypertensive heart and chronic kidney disease with heart failure and stage 1 through stage 4 chronic kidney disease, or unspecified chronic kidney disease; E11.22 Type 2 diabetes mellitus with diabetic chronic kidney disease; N18.9 Chronic kidney disease, unspecified; I50.9 Heart failure, unspecified; I48.91 Unspecified atrial fibrillation; E11.40 Type 2 diabetes mellitus with diabetic neuropathy, unspecified; E11.51 Type 2 diabetes mellitus with diabetic peripheral angiopathy without gangrene; E78.00 Pure hypercholesterolemia, unspecified; F17.210 Nicotine dependence, cigarettes, uncomplicated; Z79.899 Other long term (current) drug therapy; M79.604 Pain in right leg
CPT/HCPCS: 70450; 71045; 73630; 80053; 82805; 83605; 83880; 84484; 85025; 86141; 93005; 93971; 96374; 96375; 99284; J1171; J1940; 36415

== ENCOUNTER 2025-01-05 14:40 | Emergency (ER) | payer MEDICARE, OTHER ==
[2025-01-05] MEDS ORDERED: Iopamidol 370 76% 100 ML VIAL ONE (14:54)
[2025-01-05] MEDS ORDERED: Ketorolac Tromethamine 30 MG (1 mL) VIAL ONE (16:11)
[2025-01-05 16:59] LABS: #Basophils 0.03 10x3/uL (0.0-0.2); #Eosinophils 0.04 10x3/uL (0.0-0.7); #Monocytes 0.85 10x3/uL (0.11-0.59); #Neutrophils 2.42 10x3/uL (1.40-6.50); %Basophils 0.6 % (0.0-1.0); %Eosinophils 0.7 % (0.0-10.0); %Lymphocytes 37.4 % (21.0-51.0); %Monocytes 15.9 % (0.0-10.0); %Neutrophils 45.2 % (42.0-75.0); Hematocrit 25.7 % (36.0-47.0); Hemoglobin 8.9 g/dL (12.0-16.0); Mean Corpuscular Hemoglobin 31.7 pg (27.0-31.0); Mean Corpuscular Volume 91.5 fL (78.0-98.0); Platelet Count 201 10x3/uL (130-400); Red Blood Cell (RBC) Count 2.81 mill/uL (4.20-5.40); White Blood Cell (WBC) Count 5.35 10x3/uL (4.8-10.8)
[2025-01-05 17:15] LABS: ALT (SGPT) 14 U/L (Less than 34); AST (SGOT) 20 U/L (11-34); Albumin 3.4 g/dL (3.1-4.5); Alkaline Phosphatase 102 U/L (40-110); Anion Gap 14 mmol/L (10-20); BUN (Urea Nitrogen) 53 mg/dL (9.8-20.1); Bilirubin, Total 0.1 mg/dL (0.3-1.2); Calc. Creatinine Clearance 0 mL/min (70-130); Calcium 8.6 mg/dL (7.8-10.44); Carbon Dioxide 21 mmol/L (23-31); Chloride 105 mmol/L (98-107); Globulin 3.7 g/dL (2.4-3.5); Glucose 104 mg/dL (80-115); Potassium 5.0 mmol/L (3.5-5.1); Sodium 135 mmol/L (136-145)
[2025-01-05 17:28] LABS: INR-International Normal Ratio 1.0; Prothrombin Time 12.7 sec (12.0-14.7)
[2025-01-05 17:29] LABS: PTT 31.0 sec (22.9-36.1)
[2025-01-05 18:05] LABS: CAUTI Indications for Culture Pelvic or flank pain; Glucose, Urine (Dipstick) Normal (Negative); Leukocyte Negative Leu/uL (Negative); Protein, Urine (Dipstick) 30 mg/dL (Neg-Trace); RBC/HPF 0-3 HPF (0-3); Specific Gravity, Urine 1.017 (1.002-1.036); WBC/HPF 0-3 HPF (0-3)
[2025-01-05 18:06] LABS: Bacteria/HPF 1+ HPF (None Seen)
[2025-01-05 18:08] LABS: Urine Culture Reflex No No
== END 2025-01-05 21:53 | disposition home or self-care (01) ==
LOC: ERS 14:40
DX: N17.9 Acute kidney failure, unspecified (principal); L08.9 Local infection of the skin and subcutaneous tissue, unspecified; E11.22 Type 2 diabetes mellitus with diabetic chronic kidney disease; I12.9 Hypertensive chronic kidney disease with stage 1 through stage 4 chronic kidney disease, or unspecified chronic kidney disease; N18.9 Chronic kidney disease, unspecified; F17.210 Nicotine dependence, cigarettes, uncomplicated; Z79.82 Long term (current) use of aspirin; Z79.84 Long term (current) use of oral hypoglycemic drugs; Z79.899 Other long term (current) drug therapy
CPT/HCPCS: 75635; 80053; 81001; 83605; 85025; 85610; 85730; 93923; 96361; 96374; J1885; Q9967

== ENCOUNTER 2025-04-19 15:03 | Emergency (ER) | payer MEDICARE, OTHER ==
[2025-04-19 15:57] LABS: #Basophils 0.04 10x3/uL (0.0-0.2); #Eosinophils 0.06 10x3/uL (0.0-0.7); #Monocytes 0.91 10x3/uL (0.11-0.59); #Neutrophils 3.76 10x3/uL (1.40-6.50); %Basophils 0.5 % (0.0-1.0); %Eosinophils 0.8 % (0.0-10.0); %Lymphocytes 34.5 % (21.0-51.0); %Monocytes 12.4 % (0.0-10.0); %Neutrophils 51.4 % (42.0-75.0); Hematocrit 25.6 % (36.0-47.0); Hemoglobin 8.4 g/dL (12.0-16.0); Mean Corpuscular Hemoglobin 30.2 pg (27.0-31.0); Mean Corpuscular Volume 92.1 fL (78.0-98.0); Platelet Count 285 10x3/uL (130-400); Red Blood Cell (RBC) Count 2.78 mill/uL (4.20-5.40); White Blood Cell (WBC) Count 7.33 10x3/uL (4.8-10.8)
[2025-04-19 16:11] LABS: INR-International Normal Ratio 1.0; Prothrombin Time 12.8 sec (12.0-14.7)
[2025-04-19 16:12] LABS: PTT 27.3 sec (22.9-36.1)
[2025-04-19 16:16] LABS: ALT (SGPT) 17 U/L (Less than 34); AST (SGOT) 22 U/L (11-34); Albumin 3.4 g/dL (3.1-4.5); Alkaline Phosphatase 86 U/L (40-110); Anion Gap 14 mmol/L (10-20); BUN (Urea Nitrogen) 56 mg/dL (9.8-20.1); Bilirubin, Total 0.1 mg/dL (0.3-1.2); CK (CPK) 39 U/L (29-168); Calc. Creatinine Clearance 0 mL/min (70-130); Calcium 8.9 mg/dL (7.8-10.44); Carbon Dioxide 21 mmol/L (23-31); Chloride 104 mmol/L (98-107); Globulin 3.6 g/dL (2.4-3.5); Glucose 70 mg/dL (80-115); Magnesium 2.2 mg/dL (1.6-2.6); Potassium 4.7 mmol/L (3.5-5.1); Sodium 134 mmol/L (136-145)
== END 2025-04-19 22:50 | disposition home or self-care (01) ==
LOC: ERS 15:03
DX: I70.229 Atherosclerosis of native arteries of extremities with rest pain, unspecified extremity (principal); E11.9 Type 2 diabetes mellitus without complications; I10 Essential (primary) hypertension; I48.91 Unspecified atrial fibrillation; F17.210 Nicotine dependence, cigarettes, uncomplicated; Z79.82 Long term (current) use of aspirin; Z79.899 Other long term (current) drug therapy; Z79.84 Long term (current) use of oral hypoglycemic drugs
CPT/HCPCS: 73630; 80053; 82550; 83605; 83735; 85025; 85610; 85730; 93005; 93923; 96374; 99284; J3010

== ENCOUNTER 2025-05-20 12:03 | Outpatient (CLI) | payer MEDICARE, OTHER ==
[2025-05-20 13:09] LABS: #Basophils 0.04 10x3/uL (0.0-0.2); #Eosinophils 0.03 10x3/uL (0.0-0.7); #Monocytes 1.16 10x3/uL (0.11-0.59); #Neutrophils 8.30 10x3/uL (1.40-6.50); %Basophils 0.3 % (0.0-1.0); %Eosinophils 0.3 % (0.0-10.0); %Lymphocytes 16.2 % (21.0-51.0); %Monocytes 10.1 % (0.0-10.0); %Neutrophils 72.7 % (42.0-75.0); Hematocrit 29.6 % (36.0-47.0); Hemoglobin 9.6 g/dL (12.0-16.0); Mean Corpuscular Hemoglobin 29.8 pg (27.0-31.0); Mean Corpuscular Volume 91.9 fL (78.0-98.0); Platelet Count 373 10x3/uL (130-400); Red Blood Cell (RBC) Count 3.22 mill/uL (4.20-5.40); White Blood Cell (WBC) Count 11.43 10x3/uL (4.8-10.8)
[2025-05-20 13:40] LABS: Anion Gap 21 mmol/L (10-20); BUN (Urea Nitrogen) 35 mg/dL (9.8-20.1); Calc. Creatinine Clearance 0 mL/min (70-130); Calcium 10.1 mg/dL (7.8-10.44); Carbon Dioxide 21 mmol/L (23-31); Chloride 97 mmol/L (98-107); Glucose 79 mg/dL (80-115); Potassium 5.1 mmol/L (3.5-5.1); Sodium 134 mmol/L (136-145)
== END 2025-05-20 12:04 | disposition home or self-care (01) ==
LOC: LABBT 12:03
PROVIDERS: ATTEND Thoracic Surgery (Cardiothoracic Vascular Surgery)
DX: Z01.812 Encounter for preprocedural laboratory examination (principal); I70.262 Atherosclerosis of native arteries of extremities with gangrene, left leg
CPT/HCPCS: 80048; 85025